=== PATIENT | male | born 1965 | race American Indian/Alaskan Native ===

== ENCOUNTER 2018-03-21 08:45 | Day surgery (SDC) | payer MEDICARE ==
--- NOTE | 2018-03-21 09:27 | CP.SDSHP ---
Same Day Surgery H & P - History Proposed Procedure: excision anal lesions - Allergies Allergies: Allergies peanut oil Allergy (Unknown, Unverified 03/20/18 07:26) RASH dont know reaction please ask pt shellfish derived Allergy (Unknown, Unverified 03/20/18 07:27) RASH Dont know reaction please ask pt. - Date & Time Date: 03/21/18 Time: 09:27 Short Stay Discharge - Short Stay Discharge Admitting Diagnosis/Reason for Visit: ANOGENITAL WARTS Disposition: HOME/ ROUTINE
[2018-03-21] MEDS ORDERED: ceFAZolin IV 1 gm in Dextrose 0 GM/0 ML BAG IVPB ONE (10:52)
[2018-03-21] MEDS ORDERED: Bupivacaine HCl 0.5% PF (30 ml) Inj ONE (10:52)
[2018-03-21] MEDS ORDERED: Midazolam 2 MG/2 ML VIAL ONE (11:04)
[2018-03-21] MEDS ORDERED: Propofol 10 mg/ml Inj (20 ML) ONE (11:05)
[2018-03-21] MEDS ORDERED: ePHEDrine 50 mg/ml Inj ONE (11:29)
[2018-03-21] MEDS ORDERED: Lidocaine 2% Jelly (Uro-Jet) ONE (11:38)
--- NOTE | 2018-03-21 11:49 | PCM.SURG1 ---
Surgeon's Initial Post Op Note - Surgeon's Notes Surgeon: Dr. Fisher V/[place] Signal Officer: Dr. Galaviz PGY3 Type of Anesthesia: General LMA Pre-Operative Diagnosis: Anal Lesions Operative Findings: See operative dictation Post-Operative Diagnosis: Anal Lesions Operation Performed: Destruction of Anal Lesions Specimen/Specimens Removed: Anal Lesions Estimated Blood Loss: EBL {In ML}: 2 Blood Products Given: N/A Drains Used: No Drains Post-Op Condition: Good Date of Surgery/Procedure: 03/21/18 Time of Surgery/Procedure: 11:49
[2018-03-21] MEDS ORDERED: HYDROmorphone 0.5 mg/0.5 ml ISec IVP PRN (11:50)
[2018-03-21] MEDS ORDERED: Oxycodone/Acetaminophen 5/325 mg Tab PO PRN (11:55)
[2018-03-21 12:24] VITALS: O2SAT 98
[2018-03-21 12:42] VITALS: RESP 15
[2018-03-21 13:08] VITALS: BP 136/86; PULSE 74; TEMP 97.6
--- NOTE | 2018-03-21 20:48 | OP ---
PROCEDURE DATE: 03/21/2018 PREOPERATIVE DIAGNOSIS: Anal lesions. POSTOPERATIVE DIAGNOSIS: Anal lesions. PROCEDURE: Excision of extensive anal lesions. SURGEON: Genaro Fisher MD TYPE OF ANESTHESIA: General. INDICATIONS AND FINDINGS: This is a 52-year-old gentleman who presented with painful anal lesions with some bleeding, and on exam, they were noted to be perianal warts, circumferential; the largest were in the left lateral posterior locations in clumps. There was one in the anal canal at the dentate line. The procedure with possible risks and complications were discussed with him in detail, and the informed consent was obtained. DESCRIPTION OF PROCEDURE: After satisfactory general anesthesia, the patient in the stirrups, the perineum was prepped and draped in usual fashion. The perianal lesions were excised and sent to pathology and smaller lesions were fulgurated, and the anal wart was fulgurated. The estimated blood loss was minimal. The perianal tissue was infiltrated with Marcaine 0.5%, about 4 mL. He tolerated the procedure, transferred to recovery room in stable condition. Genaro Fisher MD
== END 2018-03-21 13:14 | disposition home or self-care (01) ==
LOC: C.SDS 08:45
PROVIDERS: ATTEND Colon & Rectal Surgery
DX: A63.0 Anogenital (venereal) warts (principal)
CPT/HCPCS: 46910; 88305; J2250; J2405; J2704; J3010